=== PATIENT | female | born 1950 | race Caucasian/White ===

== ENCOUNTER → 2020-08-24 13:46 | Outpatient (CLI) | payer OTHER, SELFPAY ==
--- NOTE | 2020-08-24 | DI.CT.S_ITS ---
PROCEDURE: CT ABDOMEN PELVIS W CON INDICATIONS: left lower quadrant pain TECHNIQUE: After the administration of oral and intravenous contrast, axial sections were acquired from the lung bases to the pubic symphysis. Coronal and sagittal reformats were performed. For radiation dose reduction, the following was used: automated exposure control, adjustment of mA and/or kV according to patient size. COMPARISON:None. FINDINGS: Image quality: Excellent. Lung bases: Unremarkable. Small hiatal hernia. Heart: No significant findings. ABDOMEN: Liver: There is a 0.7 cm low-density nodule in the left hepatic lobe, probably a hepatic cyst. Gallbladder: Contracted. No radiopaque gallstones. Biliary ducts: Unremarkable. Pancreas: Unremarkable. Spleen: Unremarkable. Adrenal Glands: Mild left adrenal thickening without discrete mass. Kidneys and Ureters: Small 5 mm indeterminate cortical nodule in the superior pole of the left kidney is most likely a cyst. Stomach and Bowel: Stomach, small bowel loops, and colon are normal in caliber. Mild segmental thickening of small bowel in the mid to right lower abdomen (series 2, image [id number]). Terminal ileum is normal. Mild diverticulosis without diverticulitis. Normal appendix. Peritoneum: No abnormal intraperitoneal fluid. No free air. Ventral Wall: A small fat containing umbilical hernia is noted. Abdominal Nodes: No retroperitoneal or mesenteric adenopathy by size criteria. Vessels: Aorta and inferior vena cava are normal in size. Moderate atherosclerosis. PELVIS: Pelvic Organs: Uterus is normal. Ovaries are not well seen. No pathological free-fluid in the cul-de-sac. Bladder: Unremarkable. Pelvic Nodes: No enlarged lymph nodes. Miscellaneous: No inguinal hernias are seen. Bones: Mild levoscoliosis. Severe degenerative changes in lumbar spine. IMPRESSION: 1. Mild diverticulosis without diverticulitis. No CT findings to explain left lower quadrant pain. 2. Mild segmental thickening of small intestine in the mid to right lower abdomen, which may be secondary to inflammatory bowel disease. or infectious segmental enteritis or artifact. The terminal ileum is normal. Dictated by: Gerson Hinson M.D. on 08/24/2020 at 15:34 Approved by: Gerson Hinson M.D. on 08/24/2020 at 22:50
== END ==
PROVIDERS: PCP Internal Medicine; Referring Provider Physician Assistant; Visit Provider Physician Assistant
DX: R10.32 Left lower quadrant pain (principal); K44.9 Diaphragmatic hernia without obstruction or gangrene; K42.9 Umbilical hernia without obstruction or gangrene
CPT/HCPCS: 74177